=== PATIENT | male | born 1995 | race African-American/Black ===

== ENCOUNTER 2017-02-21 14:37 | Emergency (ER) | payer OTHER ==
--- NOTE | ~2017-02-21 | CR20 ---
[facility] A Service of [facility] RADIOLOGY TEXT RESULTS PATIENT: BRITTANY CISNEROS LOCATION: CFTX : [birth year] UNIT #: [id number] AGE: [address]: Mónica Ratliff APRN SEX: M ORDER DR: [id number] [facility] [address] [place], [place] [address] [id number] E MR#: [id number] #: [id number] NAME: BRITTANY CISNEROS : 1995 SEX: M STUDY DATE/TIME: 02/21/2017 15:05 UNIT: [facility] ROOM: STUDY DESCRIPTION: CR Ankle Min 3 Views Lt Attending Physician: Mónica Ratliff A.P.R.N. Ordering Physician: Ed Adalberto Cartagena M.D. Primary Care Physician: No Primary Care Physician MEDICAL IMAGING REPORT This report is preliminary unless electronic signature is present EXAM Left ankle, 02/21/17, [facility]. HISTORY 22-year-old male, pain and swelling in bilateral ankles, twisting injury to both ankles 1 day ago playing basketball. FINDINGS Three standard views of the left ankle demonstrate preservation of the ankle mortise. Cortex is intact with no fracture. Soft tissues appear normal with no appreciable soft tissue swelling at this time. IMPRESSION Negative left ankle. Dictated by... Brendan Solomon M.D. THIS IS AN ELECTRONICALLY VERIFIED REPORT Brendan Solomon M.D. at 02/22/2017 8:09 AM Gavi TD: 02/21/2017 19:04 JOB #: [id number] MEDICAL IMAGING REPORT Page 1 of 1 COPY
--- NOTE | ~2017-02-21 | CR21 ---
[facility] A Service of [facility] & [facility] RADIOLOGY TEXT RESULTS PATIENT: BRITTANY CISNEROS LOCATION: CFTX : [birth year] UNIT #: [id number] AGE: [address]: Mónica Ratliff APRN SEX: M ORDER DR: [id number] [facility] [address] [place], [place] [address] [id number] E MR#: [id number] #: [id number] NAME: BRITTANY CISNEROS : 1995 SEX: M STUDY DATE/TIME: 02/21/2017 15:09 UNIT: [facility] ROOM: STUDY DESCRIPTION: CR Ankle Min 3 Views Rt Attending Physician: Mónica Ratliff A.P.R.N. Ordering Physician: Ed Adalberto Cartagena M.D. Primary Care Physician: No Primary Care Physician MEDICAL IMAGING REPORT This report is preliminary unless electronic signature is present EXAM Right ankle 02/21/2017 HISTORY 22-year-old male patient with bilateral ankle injuries playing basketball 1 day ago. Bilateral pain and swelling. FINDINGS 3 views of the right ankle demonstrate intact cortex. Ankle mortise is preserved. No visible soft tissue swelling. IMPRESSION Negative right ankle Dictated by... Brendan Solomon M.D. THIS IS AN ELECTRONICALLY VERIFIED REPORT Brendan Solomon M.D. at 02/22/2017 8:09 AM ESAU/sheba TD: 02/21/2017 18:28 JOB #: [id number] MEDICAL IMAGING REPORT Page 1 of 1 COPY
== END 2017-02-21 15:56 | disposition home or self-care (01) ==
LOC: CFTX 14:37 → CED 14:37 → CFTX 15:23
DX: S93.402A Sprain of unspecified ligament of left ankle, initial encounter (principal); S93.401A Sprain of unspecified ligament of right ankle, initial encounter; I10 Essential (primary) hypertension; F17.200 Nicotine dependence, unspecified, uncomplicated; X58.XXXA Exposure to other specified factors, initial encounter; Y93.67 Activity, basketball; Y92.830 Public park as the place of occurrence of the external cause
CPT/HCPCS: 29540; 73610; 99284